=== PATIENT | male | born 1980 | race Caucasian/White ===

== ENCOUNTER 2021-06-12 11:03 | Emergency (ER) | payer SELFPAY ==
[~2021-06-12] VITALS: Ht 203.2 cm; Wt 99.8 kg
--- NOTE | 2021-06-12 11:14 | NUR ---
[facility] 89 AND [employer] C/O SEIZURE EPISODE AND BILATERAL LEG WOUND, SWELLING AND REDNESS, CLAIMED TO BE HAVING SEIZURE PER EMS AND [employer], AAOX3, BREATHING EVEN AND NON LABORED, AWAITING MD KAMINSKI
--- NOTE | 2021-06-12 11:15 | NUR ---
[facility] UNIT#[id number] AT BEDSIDE
[2021-06-12] MEDS ORDERED: CEPH500C2 PO (11:30)
[2021-06-12] MEDS ORDERED: IBUPROFEN 600 MG TABLET ONE (11:34)
[2021-06-12 11:36] VITALS: BP 114/78
--- NOTE | 2021-06-12 11:36 | NUR ---
Patient discharged to home in stable condition. Written and verbal after care instructions given. Patient verbalizes understanding of instruction.
--- NOTE | 2021-06-12 11:38 | NUR ---
Patient given written and verbal discharge instructions. Patient verbalizes understanding of instructions. Patient is ambulatory with steady gait. Refuses offer of [facility] placement. Patient given list of available shelters in surrounding area.
[2021-06-12] MEDS ORDERED: IBUPROFEN 600 MG TABLET PO ONE (12:00)
== END 2021-06-12 11:58 | disposition home or self-care (01) ==
LOC: ER 11:45
DX: R22.43 Localized swelling, mass and lump, lower limb, bilateral (principal); Z88.8 Allergy status to other drugs, medicaments and biological substances; Z60.2 Problems related to living alone

== ENCOUNTER 2022-07-15 20:42 | Emergency (ER) | payer SELFPAY ==
[~2022-07-15] VITALS: Ht 180.3 cm; Wt 95.3 kg
[~2022-07-15 20:42] MED LIST: CEPH500C2 PO
[2022-07-15 20:54] VITALS: BP 149/80
== END 2022-07-15 21:24 | disposition home or self-care (01) ==
LOC: ER 20:44
DX: I87.8 Other specified disorders of veins (principal); Z88.8 Allergy status to other drugs, medicaments and biological substances; Z60.2 Problems related to living alone